=== PATIENT | female | born 1965 | race Caucasian/White ===

== ENCOUNTER 2017-08-07 00:01 | Emergency (ER) | payer OTHER ==
[2017-08-07 05:53] LABS: ADD MAN DIFF? NO
[2017-08-07 05:56] LABS: BASOPHIL # 0.1 10^3/ul (0.0-0.1); BASOPHILS % 0.6 % (0.0-2.0); EOSINOPHILS # 0.3 10^3/ul (0.0-0.5); HEMATOCRIT 40.9 % (37.0-47.0); HEMOGLOBIN 13.7 g/dl (12.0-16.0); LYMPHOCYTES # 3.2 10^3/ul (0.8-2.9); LYMPHOCYTES % 34.1 % (15.0-51.0); MEAN CORPUSCULAR HEMOGLOBIN 28.6 pg (29.0-33.0); MEAN CORPUSCULAR HGB CONC 33.5 g/dl (32.0-37.0); MEAN CORPUSCULAR VOLUME 85.4 fl (82.0-101.0); MEAN PLATELET VOLUME 10.2 fl (7.4-10.4); MONOCYTE # 0.5 10^3/ul (0.3-0.9); MONOCYTES % 5.1 % (0.0-11.0); NEUTROPHIL # 5.4 10^3/ul (1.6-7.5); NEUTROPHILS % 56.9 % (39.0-77.0); PLATELET COUNT 389 10^3/UL (140-415); RED BLOOD COUNT 4.79 10^6/ul (4.20-5.40)
[2017-08-07 05:56] LABS: WHITE BLOOD COUNT 9.5 10^3/ul (4.8-10.8)
[2017-08-07 06:17] LABS: INR 0.93; PROTIME 12.6 Sec (11.9-14.9)
[2017-08-07 06:18] LABS: PARTIAL THROMBOPLASTIN TIME 31.5 Sec (25.0-35.0)
[2017-08-07 06:25] LABS: ALANINE AMINOTRANSFERASE 50 IU/L (13-69); ALBUMIN 5.2 g/dl (3.3-4.9); ALBUMIN/GLOBULIN RATIO 1.08; ALKALINE PHOSPHATASE 109 IU/L (42-121); ANION GAP 20 (8-16); ASPARTATE AMINO TRANSFERASE 48 IU/L (15-46); BILIRUBIN,INDIRECT 0.6 mg/dl (0-1.1); BILIRUBIN,TOTAL 0.6 mg/dl (0.2-1.3); BLOOD UREA NITROGEN 9 mg/dl (7-20); CALCIUM 9.9 mg/dl (8.4-10.2); CARBON DIOXIDE 28 mmol/L (21-31); CHLORIDE 103 mmol/L (97-110); CREATININE 0.73 mg/dl (0.44-1.00); GLUCOSE 104 mg/dl (70-220); LIPASE 82 U/L (23-300); POTASSIUM 3.8 mmol/L (3.5-5.1); SODIUM 147 mmol/L (135-144)
[2017-08-07 06:35] LABS: B-TYPE NATRIURETIC PEPTIDE 87 PG/ML (0-125); TROPONIN-I 0.018 ng/ml (0.00-0.12)
[2017-08-07] MEDS: LORAZEPAM 0.5 MG TAB PO (07:13)
== END 2017-08-07 08:04 | disposition home or self-care (01) ==
LOC: E/R 00:01
DX: R07.2 Precordial pain (principal); I10 Essential (primary) hypertension; F41.9 Anxiety disorder, unspecified; E66.9 Obesity, unspecified; R07.9 Chest pain, unspecified
CPT/HCPCS: 36415; 71045; 80053; 83690; 83880; 84484; 85025; 85378; 85610; 85730; 93005; 99285-25

== ENCOUNTER 2017-08-17 15:06 | Outpatient (CLI) | payer OTHER | END 2017-08-17 16:33 | disposition home or self-care (01) | LOC: DCC 15:06 | DX: I10 Essential (primary) hypertension (principal); E78.5 Hyperlipidemia, unspecified; E03.9 Hypothyroidism, unspecified; F41.9 Anxiety disorder, unspecified; Z88.0 Allergy status to penicillin | CPT/HCPCS: G0463 ==

== ENCOUNTER 2017-08-31 15:00 | Outpatient (CLI) | payer OTHER | END 2017-08-31 15:55 | disposition home or self-care (01) | LOC: DCC 15:00 | DX: R07.89 Other chest pain (principal); I10 Essential (primary) hypertension; E78.5 Hyperlipidemia, unspecified; M93.90 Osteochondropathy, unspecified of unspecified site; Z88.0 Allergy status to penicillin | CPT/HCPCS: G0463 ==